=== PATIENT | female | born 1990 | race American Indian/Alaskan Native ===

== ENCOUNTER 2017-04-27 21:38 | Emergency (ER) | payer MEDICAID ==
--- NOTE | 2017-04-27 22:15 | EDM.PDOC ---
ED HPI GENERAL MEDICAL PROBLEM - General Chief Complaint: Respiratory Problem Stated Complaint: RIGHT SHOULDER PAIN HARD TO BREATH Time Seen by Provider: 04/27/17 22:00 Source of Information: Reports: Patient, RN History Limitations: Reports: No Limitations - History of Present Illness INITIAL COMMENTS - FREE TEXT/NARRATIVE: 27 yo female here with a 2 day hx of progressive R shoulder and R lateral pleuritic chest pain. No relief with ibuprofen. No fever. No injury. Pain worse with deep breathing. No SOB. No injury. No hx of the same. Has not been seen in the clinic for this. Onset: Gradual Onset Date: 04/26/17 Duration: Hour(s):, Getting Worse Location: Reports: Chest, Upper Extremity, Right (shoulder) Quality: Reports: Sharp Severity: Moderate Improves with: Reports: Rest Worsens with: Reports: Movement (and deep breathing) Context: Reports: Other (unknown) Associated Symptoms: Reports: No Other Symptoms, Chest Pain. 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 OB/BYN History: 2 C SECTIONS Neurological History: Reports: Migraines Psychiatric History: Reports: Anxiety Endocrine/Metabolic History: Reports: Diabetes, Gestational - Infectious Disease History Infectious Disease History: Reports: Other (See Below) Other Infectious Disease History: DOESNT THINK SHE'S HAD ANY - Past Surgical History GI Surgical History: Reports: Hernia, Inguinal Female Surgical History: Reports: Section Social & Family History - Family History Family Medical History: Noncontributory - Tobacco Use Smoking Status *Q: Current Some Day Smoker Years of Tobacco use: 4 Packs/Tins Daily: 0.1 Used Tobacco, but Quit: No Second Hand Smoke Exposure: No - Caffeine Use Caffeine Use: Reports: Coffee - Alcohol Use Days Per Week of Alcohol Use: 0 Number of Drinks Per Day: 0 Total Drinks Per Week: 0 - Recreational Drug Use Recreational Drug Use: No - Living Situation & Occupation Living situation: Reports: Occupation: Unemployed ED ROS GENERAL - Review of Systems Review Of Systems: See Below Constitutional: Reports: No Symptoms HEENT: Reports: No Symptoms Respiratory: Reports: Pleuritic Chest Pain Cardiovascular: Reports: No Symptoms GI/Abdominal: Reports: No Symptoms : Reports: No Symptoms Musculoskeletal: Reports: Other (R lateral chest wall pain) Skin: Reports: No Symptoms Neurological: Reports: No Symptoms ED EXAM, GENERAL - Physical Exam Exam: See Below Exam Limited By: No Limitations General Appearance: Alert, WD/WN, No Apparent Distress, Obese Eye Exam: Bilateral Eye: Normal Inspection Ears: Normal External Exam, Normal Canal, Hearing Grossly Normal, Normal TMs Ear Exam: Bilateral Ear: Auricle Normal, Canal Normal, TM normal Nose: Normal Inspection, Normal Mucosa, No Blood Throat/Mouth: Normal Inspection, Normal Lips, Normal Oropharynx, Normal Voice, No Airway Compromise Head: Atraumatic, Normocephalic Neck: Normal Inspection, Supple, Non-Tender Respiratory/Chest: No Respiratory Distress, Lungs Clear, Normal Breath Sounds, No Accessory Muscle Use, Chest Non-Tender Cardiovascular: Regular Rate, Rhythm, No Edema GI/Abdominal: Normal Bowel Sounds, Soft, Non-Tender Back Exam: Normal Inspection. No: CVA Tenderness (R), Paraspinal Tenderness Extremities: Normal Inspection, Normal Range of Motion, Non-Tender, No Pedal Edema Neurological: Alert, Oriented, CN II-XII Intact, Normal Cognition, No Motor/ Sensory Deficits Psychiatric: Normal Affect, Normal Mood Skin Exam: Warm, Dry, Intact, Normal Color, No Rash Lymphatic: No Adenopathy Course - Vital Signs Text/Narrative:: Repeat exam later in the ER course suggests RUQ tenderness with palpation. Last Recorded V/S: Last Vital Signs Temp 36.3 C 04/27/17 21:51 Pulse 63 04/27/17 21:51 Resp 20 04/27/17 21:51 BP 110/57 L 04/27/17 21:51 Pulse Ox 100 04/27/17 21:51 - Orders/Labs/Meds Orders: Active Orders 24 hr Category Date Time Status Chest 2V [CR] Stat Exams 04/27/17 22:09 Taken Medication Orders Hydromorphone HCl (Dilaudid) 1 mg IM ONETIME ONE Stop: 04/27/17 23:55 Labs: Laboratory Tests 04/27/17 04/27/17 04/27/17 Range/Units 22:20 22:20 22:20 WBC 13.6 H (4.5-12.0) X10-3/uL RBC 4.06 (3.23-5.20) x10(6)uL Hgb 11.9 (11.5-15.5) g/dL Hct 35.4 (30.0-51.3) % MCV 87.2 (80-96) fL MCH 29.4 (27.7-33.6) pg MCHC 33.7 (32.2-35.4) g/dL RDW 13.3 (11.5-15.5) % Plt Count 318 (125-369) X10(3)uL D-Dimer, Quantitative 188 (100-400) ng/mL C-Reactive Protein 0.8 (0.5-0.9) mg/dL Urine Color (YELLOW) Urine Appearance (CLEAR) Urine pH (5.0-6.5) Ur Specific [place] (1.010-1.025) Urine Protein (NEGATIVE) mg/dL Urine Glucose (UA) (NEGATIVE) mg/dL Urine Ketones (NEGATIVE) mg/dL Urine Occult Blood (NEGATIVE) Urine Nitrite (NEGATIVE) Urine Bilirubin (NEGATIVE) Urine Urobilinogen (NEGATIVE) mg/dL Ur Leukocyte Esterase (NEGATIVE) Urine RBC (0) Urine WBC (0) Ur Squamous Epith Cells (NS,R,O) Urine Bacteria (NS) Urine Mucus (NS) 04/27/17 Range/Units 23:28 WBC (4.5-12.0) X10-3/uL RBC (3.23-5.20) x10(6)uL Hgb (11.5-15.5) g/dL Hct (30.0-51.3) % MCV (80-96) fL MCH (27.7-33.6) pg MCHC (32.2-35.4) g/dL RDW (11.5-15.5) % Plt Count (125-369) X10(3)uL D-Dimer, Quantitative (100-400) ng/mL C-Reactive Protein (0.5-0.9) mg/dL Urine Color Yellow (YELLOW) Urine Appearance Clear (CLEAR) Urine pH 6.0 (5.0-6.5) Ur Specific [place] 1.020 (1.010-1.025) Urine Protein 30 H (NEGATIVE) mg/dL Urine Glucose (UA) 100 H (NEGATIVE) mg/dL Urine Ketones Negative (NEGATIVE) mg/dL Urine Occult Blood Negative (NEGATIVE) Urine Nitrite Negative (NEGATIVE) Urine Bilirubin Negative (NEGATIVE) Urine Urobilinogen Normal (NEGATIVE) mg/dL Ur Leukocyte Esterase Negative (NEGATIVE) Urine RBC 0-5 (0) Urine WBC 0-5 (0) Ur Squamous Epith Cells Few H (NS,R,O) Urine Bacteria Few H (NS) Urine Mucus Few H (NS) Meds: Medications Generic Name Dose Route Start Last Admin Trade Name Freq PRN Reason Stop Dose Admin Hydromorphone HCl 1 mg 04/27/17 23:54 Dilaudid IM 04/27/17 23:55 ONETIME ONE - Radiology Interpretation Free Text/Narrative:: CXR-negative Departure - Departure Time of Disposition: 00:15 Disposition: Home, Self-Care 01 Condition: Fair Clinical Impression: RUQ abdominal pain Right shoulder pain Qualifiers: Chronicity: acute Qualified Code(s): M25.511 - Pain in right shoulder - Discharge Information Referrals: Erica Portillo NAME PLATE STAMPER [Primary Care Provider] - Forms: ED Department Discharge - My Orders Last 24 Hours: My Active Orders 04/27/17 22:09 Chest 2V [CR] Stat - Assessment/Plan Last 24 Hours: My Active Orders 04/27/17 22:09 Chest 2V [CR] Stat
[2017-04-27] MEDS ORDERED: HYDROmorphone 2 MG/ML SDV IM ONE (23:54)
[2017-04-28] MEDS ORDERED: Acetaminophen/HYDROcodone 325-5 MG Tab PO ONE (00:13)
[2017-04-28 00:41] VITALS: BP 134/65
--- NOTE | 2017-04-28 10:42 | CR ---
INDICATION: Right shoulder and lateral chest pain. CHEST: PA and lateral views of the chest were obtained 04/27/2017. No comparisons were available. The heart appears to be normal in size and shape, allowing for a poor inspiration. A definite active infiltrate or effusion was not identified. Mediastinum and bony thorax were unremarkable. There are a few linear densities at the left costophrenic angle and one in the right mid lung field, which may be on the basis of minimal scarring or linear atelectasis and should be correlated clinically. No consolidating pneumonia or effusion was seen. Evidence of exogenous obesity is noted. IMPRESSION: 1. No definite acute process. However, minimal linear atelectasis could be present in the upper middle lung field on the right and at the left costophrenic angle. 2. Exogenous obesity. MTDD
== END 2017-04-28 00:25 | disposition home or self-care (01) ==
LOC: FB.ED 21:38
DX: M25.511 Pain in right shoulder (principal); R10.11 Right upper quadrant pain; F17.210 Nicotine dependence, cigarettes, uncomplicated; Z91.030 Bee allergy status; Z79.899 Other long term (current) drug therapy
CPT/HCPCS: 36415; 71046; 81001; 85027; 85379; 86140; 96372; 99285; A9270; J1170

== ENCOUNTER 2017-04-28 10:27 | Emergency (ER) | payer MEDICAID ==
--- NOTE | 2017-04-28 11:30 | EDM.PDOC ---
ED HPI GENERAL MEDICAL PROBLEM - General Chief Complaint: Back Pain or Injury Stated Complaint: RT SHOULDER AND BACK PAIN Time Seen by Provider: 04/28/17 11:15 Source of Information: Reports: Patient, Old Records History Limitations: Reports: No Limitations - History of Present Illness INITIAL COMMENTS - FREE TEXT/NARRATIVE: 27 yo female was here last night for R shoulder and R lateral chest pain. Last night she had a slightly elevated WBC ct and seemed to have RUQ abdominal pain on exam. She was asked to return today for a GB US which she did and the test was negative. She got partial relief overnight with [place], but the pain persists. No fever. Recalls going to the gym for the first time a couple days ago. CXR last night was negative. Onset: Gradual Onset Date: 04/27/17 Duration: Hour(s):, Constant Location: Reports: Neck (R posterior neck and shoulder. ), Chest (R lateral chest, pleuritic) Quality: Reports: Ache (in neck), Sharp (R lateral chest) Severity: Moderate Improves with: Reports: Rest Worsens with: Reports: Movement Context: Reports: Exercise (gym visit 2 d ago) Associated Symptoms: Denies: Cough, Diaphoresis, Fever/Chills, Nausea/Vomiting, Rash, Shortness of Breath Treatments ECOLOGIST: Reports: Other (see below) ([place]) - Related Data Allergies Allergy/AdvReac Type Severity Reaction Status Date / Time venom-honey bee Allergy Anaphylactic Verified 04/28/17 11:04 [bee venom (honey bee)] Shock Home Meds: Home Meds busPIRone [Buspar] 5 mg PO DAILY 05/30/15 [History] Cyclobenzaprine [Flexeril] 10 mg PO TID PRN #14 tab 04/28/17 [Rx] Past Medical History - Past Health History Medical/Surgical History: Denies 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 OB/BYN History: 2 C SECTIONS Musculoskeletal History: Reports: Other (See Below) Other Musculoskeletal History: back pain Neurological History: Reports: Migraines Psychiatric History: Reports: Anxiety Endocrine/Metabolic History: Reports: Diabetes, Gestational - Infectious Disease History Infectious Disease History: Reports: Other (See Below) Other Infectious Disease History: DOESNT THINK SHE'S HAD ANY - Past Surgical History GI Surgical History: Reports: Hernia, Inguinal Female Surgical History: Reports: Section Social & Family History - Family History Family Medical History: Noncontributory - Tobacco Use Smoking Status *Q: Current Some Day Smoker Years of Tobacco use: 4 Packs/Tins Daily: 0.1 Used Tobacco, but Quit: No Second Hand Smoke Exposure: No - Caffeine Use Caffeine Use: Reports: Coffee - Alcohol Use Days Per Week of Alcohol Use: 0 Number of Drinks Per Day: 0 Total Drinks Per Week: 0 - Recreational Drug Use Recreational Drug Use: No - Living Situation & Occupation Living situation: Reports: Occupation: Unemployed ED ROS GENERAL - Review of Systems Review Of Systems: See Below Constitutional: Reports: No Symptoms HEENT: Reports: No Symptoms Respiratory: Reports: No Symptoms Cardiovascular: Reports: No Symptoms GI/Abdominal: Reports: No Symptoms Musculoskeletal: Reports: Neck Pain, Shoulder Pain (on R posteriorly) Skin: Reports: No Symptoms Neurological: Reports: No Symptoms ED EXAM, UPPER BACK/NECK PAIN - Physical Exam Exam: See Below Exam Limited By: No Limitations General Appearance: Alert, WD/WN, No Apparent Distress, Obese Eye Exam: Bilateral Eye: Normal Inspection Ears Exam: Normal External Exam, Normal Canal, Hearing Grossly Normal Nose Exam: Normal Inspection, Normal Mucousa, No Blood Throat/Mouth Exam: Normal Inspection, Normal Lips, Normal Oropharynx, Normal Voice, No Airway Compromise Head Exam: Atraumatic, Normocephalic Neck Exam: Normal Alignment, Normal Inspection, Tenderness (in distribution of the R trapezius muscle) Cardiovascular/Respiratory: Regular Rate, Rhythm GI/Abdominal: Normal Bowel Sounds, Soft, Non-Tender, No Distention, Other (Obese ) Back Exam: Normal Inspection. 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 As Tested, No Motor/Sensory Deficits, Alert, Normal Mood/Affect, Oriented x 3 Psychiatric: Normal Affect, Normal Mood Skin Exam: Normal Color, Warm/Dry Lymphatic: No Adenopathy Course - Orders/Labs/Meds Orders: Active Orders 24 hr Category Date Time Status CRP [C-REACTIVE PROTEIN] [CHEM] Stat Lab 04/28/17 10:45 Received Labs: Laboratory Tests 04/28/17 Range/Units 10:45 WBC 11.5 (4.5-12.0) X10-3/uL RBC 4.18 (3.23-5.20) x10(6)uL Hgb 12.3 (11.5-15.5) g/dL Hct 35.9 (30.0-51.3) % MCV 85.9 (80-96) fL MCH 29.4 (27.7-33.6) pg MCHC 34.2 (32.2-35.4) g/dL RDW 13.4 (11.5-15.5) % Plt Count 300 (125-369) X10(3)uL Departure - Departure Time of Disposition: : Disposition: Home, Self-Care 01 Condition: Good Clinical Impression: Pleurisy Trapezius muscle strain Qualifiers: Encounter type: initial encounter Laterality: right Qualified Code(s): S46.811A - Strain of other muscles, fascia and tendons at shoulder and upper arm level, right arm, initial encounter - Discharge Information Prescriptions: Cyclobenzaprine [Flexeril] 10 mg PO TID PRN #14 tab PRN Reason: Pain Referrals: Erica Portillo MANAGER NEWS [Primary Care Provider] - Forms: ED Department Discharge Additional Instructions: Take Flexeril as needed. Take ibuprofen 400 mg every 6 hrs with food. May acetaminophen 1000 mg every 6 hrs for additional pain relief. Avoid lifting with your R arm/hand for the next few days. Recheck in the clinic later this week. - My Orders Last 24 Hours: My Active Orders 04/28/17 10:45 CRP [C-REACTIVE PROTEIN] [CHEM] Stat - Assessment/Plan Last 24 Hours: My Active Orders 04/28/17 10:45 CRP [C-REACTIVE PROTEIN] [CHEM] Stat
[2017-04-28 13:30] VITALS: BP 130/66
== END 2017-04-28 11:33 | disposition home or self-care (01) ==
LOC: FB.ED 10:27
DX: S46.811A Strain of other muscles, fascia and tendons at shoulder and upper arm level, right arm, initial encounter (principal); R09.1 Pleurisy; F17.210 Nicotine dependence, cigarettes, uncomplicated; Z91.030 Bee allergy status; Z79.899 Other long term (current) drug therapy; X58.XXXA Exposure to other specified factors, initial encounter
CPT/HCPCS: 36415; 85027; 86140; 99283